=== PATIENT | male | born 1965 | race African-American/Black ===

== ENCOUNTER 2021-01-14 21:21 | Emergency (ER) | payer OTHER ==
[~2021-01-14] VITALS: Ht 170.2 cm; Wt 111.0 kg
[2021-01-14 22:22] LABS: HEMATOCRIT 41.8 % (39.0-50.0); IMMATURE GRANULOCYTES 0.2 % (0.0-5.0); MEAN CELL VOLUME 83.6 fL CALC (80.0-100.0); MEAN CORPUSCULAR HGB CONC 33.5 g/dL CAL (32.0-36.0); NEUT# 1.52 thou/uL (1.82-7.42); RED CELL DISTRI WIDTH 14.1 % (11.5-15.5)
[2021-01-14 22:39] LABS: ALBUMIN 4.8 g/dL (3.2-5.0); ALKALINE PHOSPHATASE 74 u/l (38-126); AMYLASE 64 u/l (30-110); ANION GAP 13 (6-22 (CALC)); BILIRUBIN, TOTAL 0.6 mg/dL (0.0-1.4); BUN 13 mg/dL (9-20); BUN/CREATININE RATIO 13 (12-20 (CALC)); CARBON DIOXIDE 30 mmol/l (22-30); CHLORIDE 99 mmol/l (95-108); GFR > 60 ML/MIN (>=60 (CALC)); GFR FOR AFR.AMER. > 60 ML/MIN (>=60 (CALC)); LIPASE 133 u/l (23-300); POTASSIUM 4.2 mmol/l (3.5-5.1); SGOT/AST 24 u/l (17-59); SODIUM 138 mmol/l (137-146); TOTAL PROTEIN 8.3 g/dL (6.3-8.2)
[2021-01-14] MEDS ORDERED: KRISTALOSE10 GM PO (23:20)
[2021-01-15 00:22] LABS: URINE BILIRUBIN - DIPSTICK NEGATIVE (NEGATIVE); URINE BLOOD DIPSTICK NEGATIVE (NEGATIVE); URINE COLOR YELLOW; URINE GLUCOSE - DIPSTICK NEGATIVE (NEGATIVE); URINE KETONE NEGATIVE (NEGATIVE); URINE LEUK ESTERASE NEGATIVE (NEGATIVE); URINE NITRITE - DIPSTICK NEGATIVE (Negative); URINE PROTEIN - DIPSTICK NEGATIVE (NEG-TRACE); URINE UROBILINOGEN - DIPSTICK 0.2 E.U./dL (0.2)
[2021-01-15] MEDS ORDERED: GOLYTEL1 PO (01:42)
[2021-01-15 02:04] VITALS: BP 121/75
== END 2021-01-15 02:04 | disposition designated cancer center or children's hospital (05) | DRG 393 ==
LOC: ED 21:21
PROVIDERS: Family Medicine
DX: K42.9 Umbilical hernia without obstruction or gangrene (principal); U07.1 COVID-19; K59.00 Constipation, unspecified; I10 Essential (primary) hypertension
CPT/HCPCS: Q9967

== ENCOUNTER 2021-03-04 | Emergency (ER) | payer OTHER ==
[~2021-03-04] MED LIST: GOLYTEL1 PO; KRISTALOSE10 GM PO
[2021-03-04] MEDS ORDERED: OMEPRAZOLE DR20 MG PO (00:58)
[2021-03-04] MEDS ORDERED: LIPITOR20 M1 PO (00:58)
[2021-03-04] MEDS ORDERED: LEVOTHYROXIN25 MC1 PO (00:59)
[2021-03-04] MEDS ORDERED: SENNA-TABS8.6 MG PO (00:59)
[2021-03-04] MEDS ORDERED: CHLORPHENIR4 MG PO (01:00)
== END 2021-03-04 01:09 | disposition home or self-care (01) | DRG 395 ==
DX: K43.9 Ventral hernia without obstruction or gangrene (principal); I10 Essential (primary) hypertension